=== PATIENT | female | born 1970 | race Caucasian/White ===

== ENCOUNTER → 2018-05-23 | Outpatient (CLI) | payer BC | LOC: MC.RAD 13:33 | DX: Z12.31 Encounter for screening mammogram for malignant neoplasm of breast (principal); N63.10 Unspecified lump in the right breast, unspecified quadrant ==

== ENCOUNTER → 2018-06-03 | Outpatient (CLI) | payer BC | LOC: MC.RAD 13:50 | DX: N63.10 Unspecified lump in the right breast, unspecified quadrant (principal) ==

== ENCOUNTER → 2022-12-12 | Outpatient (CLI) | payer BC | LOC: COL.VAS 08:20 | DX: I35.1 Nonrheumatic aortic (valve) insufficiency (principal) ==